=== PATIENT | male | born 1990 | race African-American/Black ===

== ENCOUNTER 2022-06-14 15:21 | Emergency (ER) | payer SELFPAY ==
[~2022-06-14] VITALS: Ht 200.7 cm; Wt 126.0 kg
[2022-06-14 16:12] VITALS: BP 164/88
[2022-06-14] MEDS ORDERED: IBUPROFEN 800 MG TAB PO ONE (16:30)
[2022-06-14] MEDS ORDERED: IBUP800T27 PO (16:32)
[2022-06-14] MEDS ORDERED: AMOX-277 PO (16:32)
== END 2022-06-14 16:51 | disposition home or self-care (01) ==
LOC: ER 15:24
DX: H66.93 Otitis media, unspecified, bilateral (principal)